=== PATIENT | male | born 2000 | race Caucasian/White ===

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

== ENCOUNTER 2020-06-09 17:16 | Emergency (ER) | payer OTHER ==
--- NOTE | 2020-06-09 17:48 | EDM.PDOC ---
ED HPI GENERAL MEDICAL PROBLEM - General Chief Complaint: Gastrointestinal Problem Stated Complaint: NAUSEA Time Seen by Provider: 06/09/20 17:30 Source of Information: Reports: Patient History Limitations: Reports: No Limitations - History of Present Illness INITIAL COMMENTS - FREE TEXT/NARRATIVE: c/o n/v/d x 2d [place] in [place] 2[place], [place] food at the mall, 2h later he developed and cramps and vomiting and diarrhea n/v now gone, still cramping after eating and 4 loose BMs today works at [employer], missed work the last 2 nights, took sick days scheduled to work tonight as well as the next several nights took Pedialyte, has not taken meds no THC, no street drugs had a minor episode of diarrhea 2y ago, no other GI hx lives with gfriend and 2 children who are not ill - Related Data Allergies Allergy/AdvReac Type Severity Reaction Status Date / Time No Known Allergies Allergy Verified 06/12/19 11:55 Home Meds: Home Meds NK [No Known Home Meds] 06/09/20 [History] Social & Family History - Family History Family Medical History: No Pertinent Family History - Caffeine Use Caffeine Use: Reports: Energy Drinks ED ROS GENERAL - Review of Systems Review Of Systems: See Below Constitutional: Reports: No Symptoms HEENT: Reports: No Symptoms Respiratory: Reports: No Symptoms Cardiovascular: Reports: No Symptoms Endocrine: Reports: No Symptoms GI/Abdominal: Reports: Diarrhea, Nausea, Vomiting, Other (cramps, no blood or mucus in stool) : Reports: No Symptoms Musculoskeletal: Reports: No Symptoms Skin: Reports: No Symptoms Neurological: Reports: No Symptoms Psychiatric: Reports: No Symptoms Hematologic/Lymphatic: Reports: No Symptoms Immunologic: Reports: No Symptoms ED EXAM, GI/ABD - Physical Exam Exam: See Below Exam Limited By: No Limitations General Appearance: Alert, WD/WN, No Apparent Distress, Other (alert, pleasant, nonill, muscular, did go move bowels shortly after coming to ED, soft and brown by his report) Ears: Hearing Grossly Normal Head: Atraumatic, Normocephalic Neck: Normal Inspection, Supple, Non-Tender. No: Limited Range of Motion, Lymphadenopathy (R) Respiratory/Chest: Lungs Clear, Normal Breath Sounds, No Accessory Muscle Use Cardiovascular: Regular Rate, Rhythm, No Edema GI/Abdominal Exam: Normal Bowel Sounds, Soft, No Organomegaly, No Distention, Other (mild epigastric tender) Back Exam: Normal Inspection, Full Range of Motion. No: CVA Tenderness (R), CVA Tenderness (L) Extremities: Normal Inspection, Normal Range of Motion, Non-Tender, No Pedal Edema Neurological: Alert, Oriented, CN II-XII Intact, Normal Cognition, No Motor/Sensory Deficits Psychiatric: Normal Affect, Normal Mood Skin Exam: Warm, Dry, Intact, Normal Color, No Rash Lymphatic: No Adenopathy Course - Vital Signs Last Recorded V/S: Last Vital Signs Temp 36.6 C 06/09/20 17:20 Pulse 85 06/09/20 17:20 Resp 16 06/09/20 17:20 BP 138/67 06/09/20 17:20 Pulse Ox 100 06/09/20 17:20 - Orders/Labs/Meds Labs: Laboratory Tests 06/09/20 Range/Units 17:55 SARS-CoV-2 RNA (GALO) Negative (NEGATIVE) Meds: Medications Discontinued Medications Generic Name Dose Route Start Last Admin Trade Name Radha PRN Reason Stop Dose Admin Loperamide HCl 4 mg 06/09/20 17:51 06/09/20 17:55 Loperamide 2 Mg Cap PO 06/09/20 17:52 4 mg ONETIME ONE Administration - Re-Assessments/Exams Free Text/Narrative Re-Assessment/Exam: 06/09/20 19:05 COVID is neg. Pt does not have access to bathroom most of the time when working Given work note. 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 For cramping, take ibuprofen 200 mg 3 tabs 4 times a day, as needed. Increase fluids. No work tonight. See your doctor in 3 days if you are not back to normal. Use good handwashing. Sepsis Event Note (ED) - Evaluation Sepsis Screening Result: No Definite Risk - Focused Exam Vital Signs: Vital Signs Temp Pulse Resp BP Pulse Ox 06/09/20 17:20 36.6 C 85 16 138/67 100
[2020-06-09] MEDS ORDERED: Loperamide 2 MG Cap PO ONE (17:51)
== END 2020-06-09 19:10 | disposition home or self-care (01) ==
LOC: FB.ED 17:16
DX: A05.9 Bacterial foodborne intoxication, unspecified (principal); Z20.822 Contact with and (suspected) exposure to COVID-19
CPT/HCPCS: 87635; 99284; A9270; 99282; U0002